=== PATIENT | female | born 1970 | race Caucasian/White ===

== ENCOUNTER 2023-08-11 15:09 | Emergency (ER) | payer MEDICAID, SELFPAY ==
[2023-08-11 15:18] VITALS: BP 179/89; PULSE 82; RESP 16; TEMP 36.8; O2SAT 98; BMI 28.3
--- NOTE | 2023-08-11 16:31 | ED_ITS ---
HPI - Back Pain/Injury General Date Seen: 08/11/23 Chief Complaint: Back Injury/Pain Stated Complaint: back pain Time Seen by Provider: 08/11/23 16:14 Source: patient Mode of arrival: ambulatory Limitations: no limitations History of Present Illness HPI Narrative: Patient is a 52-year-old female presenting for lumbar pain. This pain is been going on for the past year. States she comes in now because she feels defeated a cannot handle the pain anymore. She had back surgery 4 years ago for this same pain and was doing well up until the past year. She has not been taking any medication for it and has been trying to not have to go back to the doctor for re-evaluation. She finally comes in today hoping that we can patellar why her back hurts. She denies any recent falls or injuries. Does state the left leg has some numbness in the lateral aspect denies any saddle anesthesia or loss of ball or bladder control or urinary retention. Denies any fevers. Denies IV drug use. States she uses marijuana for pain control. States the pain is making hard for her to do her activities of daily living. Related Data Home Medications ?Medication ?Instructions ?Recorded ?Confirmed atorvastatin 10 mg tablet 10 mg PO DAILY 08/11/23 08/11/23 metformin 1,000 mg tablet 1,000 mg PO BID 08/11/23 08/11/23 omeprazole 20 mg capsule,delayed 20 mg PO DAILY 08/11/23 08/11/23 release trazodone .Route QHS sleep 08/11/23 Previous Rx's ?Medication ?Instructions ?Recorded ketorolac 10 mg tablet 10 mg PO Q6H #20 tabs 08/11/23 oxycodone 5 mg capsule 5 mg PO Q6H PRN pain #12 caps 08/11/23 Allergies Allergy/AdvReac Type Severity Reaction Status Date / Time No Known Drug Allergies Allergy Verified 08/11/23 15:16 Review of Systems Narrative: Pertinent systems reviewed and were negative unless stated in HPI PFSH PFSH Social History Smoking Status: Current every day smoker How often do you have a drink containing alcohol: never AUDIT-C Alcohol total score: 0 Non-prescribed substance use: marijuana (any form) Exam Const: Vital Signs, click to edit/add: Vital Signs - 24 hr 08/11/23 15:18 08/11/23 17:01 Temperature 98.2 F 98.2 F Pulse Rate [Pulse Oximeter] 82 82 Respiratory Rate 16 16 Blood Pressure [Ri ght Upper Arm] 179/89 H 179/89 H Pulse Oximetry 98 Oxygen Delivery Me thod Room Air Course Vital Signs Vital signs: Initial Vital Signs Temperature 98.2 F 08/11/23 15:18 Temperature Source Temporal Artery Scan 08/11/23 15:18 Pulse Rate 82 08/11/23 15:18 Pulse Rhythm Regular 08/11/23 15:18 Respiratory Rate 16 08/11/23 15:18 Blood Pressure 179/89 H 08/11/23 15:18 Blood Pressure Mean 119 H 08/11/23 15:18 Blood Pressure Position Sitting 08/11/23 15:18 Pulse Oximetry 98 08/11/23 15:18 Oxygen Delivery Method Room Air 08/11/23 15:18 Vital Signs Temperature 98.2 F 08/11/23 15:18 Pulse Rate 82 08/11/23 15:18 Respiratory Rate 16 08/11/23 15:18 Blood Pressure 179/89 H 08/11/23 15:18 Pulse Oximetry 98 08/11/23 15:18 Oxygen Delivery Method Room Air 08/11/23 15:18 Temperature 98.2 F 08/11/23 17:01 Pulse Rate 82 08/11/23 17:01 Respiratory Rate 16 08/11/23 17:01 Blood Pressure 179/89 H 08/11/23 17:01 Pulse Oximetry 98 08/11/23 15:18 Oxygen Delivery Method Room Air 08/11/23 15:18 Medications Administered Medications: Discontinued Medications Generic Name Dose Route Start Last Admin Trade Name Freq PRN Reason Stop Dose Admin Oxycodone HCl 5 mg 08/11/23 16:35 08/11/23 16:45 Oxycodone 5 Mg Tablet PO 08/11/23 16:36 5 mg ONCE ONE Administration MDM - Back Pain/Injury MDM Narrative Medical decision making narrative: Patient is a 52-year-old female presenting for low back pain. She is having no red flag symptoms for cauda equina syndrome at this time. I spoke to her how x- ray and CT are unlikely to show her the cause of pain at this time and MRIs not available. I also explained to her that even if he were able to get an MRI she needs her spinal surgeon to interpreted to tell her what is wrong and what needs to be done. I informed her she needs to see primary care also which she does not have a primary care provider. Information was given to her set up primary care. I also informed she needs to see her spinal surgeon again. While I a.m. hesitant to give pain medications for chronic pain she has no history of drug abuse and has not had a opioid prescription and over 2 years. I will give her 3 days of oxycodone and some Toradol. I explained to her that she will not be able to get the oxycodone prescription through the emergency department. She states she understands. She will be discharged. Discharge Plan Discharge Clinical Impression: Lumbar radiculopathy Patient Disposition: Home, Self-Care Condition: Stable Instructions: Acute Low Back Pain (ED) Additional Instructions: We will give you information to set up primary care follow-up outpatient. Is also reporting trying to get scheduled again with your previous surgeon. While I will give you a prescription for oxycodone at this time he will not be able to get any further prescriptions for this back pain from this emergency department. Also give you prescription for Toradol. Use this medication 1st Prescriptions: New oxycodone 5 mg capsule 5 mg PO Q6H PRN (Reason: pain) Qty: 12 0RF ketorolac 10 mg tablet 10 mg PO Q6H Qty: 20 0RF Rx Instructions: maximum total duration of 5 days from all oral, intranasal, or parenteral formulations No Action metformin 1,000 mg tablet 1,000 mg PO BID trazodone .Route QHS omeprazole 20 mg capsule,delayed release(DR/EC) 20 mg PO DAILY atorvastatin 10 mg tablet 10 mg PO DAILY Follow Up/Referrals: Lori Chapin MD [Primary Care Provider] - Stand Alone Forms: [employer] Info Instructions
[2023-08-11] MEDS: OXYCODONE 5 MG TABLET PO (16:45)
[2023-08-11 17:00] VITALS: BP 171/99; PULSE 102; RESP 16; O2SAT 96
[2023-08-11 17:01] VITALS: BP 179/89; PULSE 82; RESP 16; TEMP 36.8
[2023-08-11 18:00] VITALS: BP 169/84; PULSE 97; RESP 16; O2SAT 98
[2023-08-11] MEDS: ONDANSETRON ODT 4 MG TAB PO (18:54)
== END 2023-08-11 19:00 | disposition home or self-care (01) ==
LOC: ED 16:45
PROVIDERS: Emergency Provider Student in an Organized Health Care Education/Training Program; PCP Family Medicine
DX: M54.16 Radiculopathy, lumbar region (principal)
CPT/HCPCS: 99282; 99283; A9270